=== PATIENT | female | born 1960 | race African-American/Black ===

== ENCOUNTER 2018-06-06 01:18 | Emergency (ER) | payer OTHER ==
[~2018-06-06] VITALS: Ht 167.6 cm; Wt 95.4 kg
[~2018-06-06 01:18] MED LIST: BENZ1TAB10 PO; GLIM4 PO; HYDR12.530 PO; METF500T7 PO; METO-408 PO
[2018-06-06] MEDS ORDERED: GEMF600T5 PO (01:34)
[2018-06-06] MEDS ORDERED: GABA-531 PO (01:34)
[2018-06-06] MEDS ORDERED: PREM625 PO (01:34)
[2018-06-06] MEDS ORDERED: AMLO-512 PO (01:34)
[2018-06-06] MEDS ORDERED: LINA5TAB PO (01:34)
[2018-06-06] MEDS ORDERED: METF-446 PO (01:34)
[2018-06-06] MEDS ORDERED: INSU100I26 SQ (01:34)
[2018-06-06] MEDS ORDERED: GLYB2.5 PO (01:34)
[2018-06-06 01:37] VITALS: BP 148/72
[2018-06-06 01:42] LABS: GLUCOSE,POINT OF CARE 199 MG/DL (70-110)
[2018-06-06] MEDS: BUPIVACAINE HCL/PF 0.25% 10 ML VIAL INJ ONE (02:09)
[2018-06-06] MEDS: LIDOCAINE 1% 10 ML VIAL INJ ONE (02:09)
[2018-06-06] MEDS: CLINDAMYCIN HCL 150 MG CAPSULE PO ONE (02:21)
== END 2018-06-06 02:20 | disposition home or self-care (01) ==
LOC: EMS 01:18
DX: K08.89 Other specified disorders of teeth and supporting structures (principal); I10 Essential (primary) hypertension; E78.00 Pure hypercholesterolemia, unspecified; E11.9 Type 2 diabetes mellitus without complications; Z79.4 Long term (current) use of insulin
CPT/HCPCS: 64400; 82962; 99284; J3490 ×2

== ENCOUNTER 2018-06-08 10:55 | Emergency (ER) | payer OTHER ==
[~2018-06-08] VITALS: Ht 167.6 cm; Wt 92.7 kg
[~2018-06-08 10:55] MED LIST changes: +AMLO-512 PO; -BENZ1TAB10 PO; +GABA-531 PO; +GEMF600T5 PO; -GLIM4 PO; +GLYB2.5 PO; -HYDR12.530 PO; +INSU100I26 SQ; +LINA5TAB PO; +METF-446 PO; -METF500T7 PO; -METO-408 PO; +PREM625 PO
[2018-06-08] MEDS ORDERED: CLIN150C9 PO (11:11)
[2018-06-08] MEDS ORDERED: PERCT PO (11:11)
[2018-06-08 11:18] LABS: GLUCOSE,POINT OF CARE 98 MG/DL (70-110)
[2018-06-08] MEDS ORDERED: ONDANSETRON HCL 4 MG/2 ML VIAL IVP ONE (12:30)
[2018-06-08] MEDS ORDERED: AMPICILLIN SODIUM/SULBACTAM NA 3 GM in SODIUM CHLORIDE 0.9% 100 ML IV ONE (12:30)
[2018-06-08] MEDS ORDERED: KETOROLAC TROMETHAMINE 30 MG/ML VIAL IVP ONE (13:45)
[2018-06-08 14:00] VITALS: BP 139/65
== END 2018-06-08 14:02 | disposition home or self-care (01) ==
LOC: EMS 10:56
DX: K04.7 Periapical abscess without sinus (principal); I10 Essential (primary) hypertension; E78.00 Pure hypercholesterolemia, unspecified; E11.9 Type 2 diabetes mellitus without complications
CPT/HCPCS: 82962; 96365; 96375; 99283; J0295; J1885; J2405; J7050

== ENCOUNTER 2018-06-08 23:02 | Emergency (ER) | payer OTHER ==
[~2018-06-08] VITALS: Ht 167.6 cm; Wt 92.7 kg
[~2018-06-08 23:02] MED LIST changes: +CLIN150C9 PO; +PERCT PO
[2018-06-09 00:48] LABS: GLUCOSE,POINT OF CARE 156 MG/DL (70-110)
[2018-06-09] MEDS ORDERED: KETOROLAC TROMETHAMINE 60 MG/2 ML VIAL IM ONE (03:30)
[2018-06-09] MEDS ORDERED: HYDROCODONE/ACETAMINOPHEN 5-325 MG TABLET PO ONE (03:30)
[2018-06-09 04:32] VITALS: BP 145/96
== END 2018-06-09 04:35 | disposition home or self-care (01) ==
LOC: EMS 23:03
DX: K02.9 Dental caries, unspecified (principal); E11.9 Type 2 diabetes mellitus without complications; E78.00 Pure hypercholesterolemia, unspecified; I10 Essential (primary) hypertension; Z90.710 Acquired absence of both cervix and uterus
CPT/HCPCS: 82962; 96372; 99283; J1885

== ENCOUNTER 2019-11-22 10:55 | Emergency (ER) | payer OTHER ==
[~2019-11-22] VITALS: Ht 167.6 cm; Wt 90.9 kg
[~2019-11-22 10:55] MED LIST changes: -AMLO-512 PO; +AMLO10TA7 PO; +GABA-1181 PO; -GABA-531 PO
[2019-11-22] MEDS ORDERED: SODIUM CHLORIDE 0.9% 1,000 ML IV ONE (11:30)
[2019-11-22] MEDS ORDERED: KETOROLAC TROMETHAMINE 30 MG/ML VIAL IVP ONE (11:30)
[2019-11-22] MEDS ORDERED: ONDANSETRON HCL 4 MG/2 ML VIAL IVP ONE (11:30)
[2019-11-22 11:48] LABS: BASOPHILS % (AUTO) 0.7 % (0.0-2.0); EOSINOPHILS % (AUTO) 0.1 % (1.0-6.0); HEMATOCRIT 39.8 % (36-46); HEMOGLOBIN 13.1 g/dL (12.0-16.0); LYMPHOCYTES # (AUTO) 1.6 K/uL (1.0-4.8); LYMPHOCYTES % (AUTO) 12.9 % (22.0-44.0); MEAN CORPUSCULAR HEMOGLOBIN 27.1 pg (26.0-34.0); MEAN CORPUSCULAR HGB CONC 32.8 G/dL (31.0-37.0); MEAN CORPUSCULAR VOLUME 83 fL (80-100); MONOCYTES # (AUTO) 0.4 K/uL (0.1-1.0); MONOCYTES % (AUTO) 3.5 % (2.0-9.0); NEUTROPHILS # (AUTO) 10.5 K/uL (1.8-7.7); NEUTROPHILS % (AUTO) 82.8 % (40.0-70.0); PLATELET COUNT (AUTO) 375 K/uL (150-450); RED BLOOD CELL COUNT(AUTO) 4.82 MIL/uL (4.00-5.20); RED CELL DISTRIBUTION WIDTH 14.4 % (11.5-14.5)
[2019-11-22 11:57] LABS: ANION GAP 12 mmol/L (8-16); CALCIUM, TOTAL 9.1 mg/dL (8.8-10.5); CARBON DIOXIDE 26 mmol/L (22-29); CHLORIDE 100 mmol/L (98-107); CREATININE 0.72 mg/dL (0.60-1.30); GLOMERULAR FILTR. RATE CALC > 60 mL/min (>60); GLUCOSE,RANDOM 201 mg/dL (70-110); POTASSIUM 3.1 mmol/L (3.5-5.1); SODIUM SERUM 138 mmol/L (136-145); UREA NITROGEN, BLOOD 8 mg/dL (7-18)
[2019-11-22 11:59] LABS: PROTHROMBIN TIME 10.7 SEC (9.4-11.6)
[2019-11-22 12:04] LABS: ALANINE AMINOTRANSFERASE 15 U/L (12-78); ALBUMIN 4.1 g/dL (3.4-5.0); ALKALINE PHOSPHATASE 114 U/L (46-116); ASPARTATE AMINOTRANSFERASE 9 U/L (15-37); BILIRUBIN,TOTAL 0.3 mg/dL (0.1-1.0); LIPASE 100 U/L (73-393); TOTAL PROTEIN, SERUM 8.6 g/dL (6.4-8.2)
[2019-11-22 12:30] VITALS: BP 141/71
== END 2019-11-22 12:45 | disposition home or self-care (01) ==
LOC: EMS 10:56
DX: K80.20 Calculus of gallbladder without cholecystitis without obstruction (principal); N20.1 Calculus of ureter; E11.9 Type 2 diabetes mellitus without complications; E78.00 Pure hypercholesterolemia, unspecified; I10 Essential (primary) hypertension; Z79.84 Long term (current) use of oral hypoglycemic drugs; Z79.899 Other long term (current) drug therapy
CPT/HCPCS: 36415; 71045; 74176; 80053; 81002; 83690; 84484; 85025; 85610; 93005; 96361; 96374; 96375; 99285; J1885; J2405